=== PATIENT | male | born 1990 | race Hispanic/Latino ===

== ENCOUNTER 2025-08-22 15:01 | Emergency (ER) | payer SELFPAY ==
[2025-08-22 15:04] VITALS: BP 135/85; PULSE 77; RESP 20; TEMP 36.1; O2SAT 100
--- NOTE | 2025-08-22 15:22 | ED_ITS ---
HPI - Abdominal Pain General Chief Complaint: Abdominal Pain <Rebecca Knutson APRN - Last Filed: 08/22/25 20:00> Stated Complaint: abd pain <Rebecca Knutson APRN - Last Filed: 08/22/25 20:00> Time Seen by Provider: 08/22/25 15:07 <Rebecca Knutson APRN - Last Filed: 08/22/25 20:00> History of Present Illness HPI narrative: Patient is a 35-year-old male who presents to the ER with generalized abdominal pain. He reports his symptoms started approximately 3-4 days ago. He denies any urinary symptoms, recent fevers, constipation or diarrhea. Patient denies any medical history relevant to this ER visit. He reports his last bowel movement was this morning and was normal for him. <Rebecca Knutson APRN - Last Filed: 08/22/25 20:00> Related Data Allergies/Adverse Reactions: Allergies Allergy/AdvReac Type Severity Reaction Status Date / Time No Known Allergies Allergy Verified 08/22/25 15:06 <Rebecca Knutson APRN - Last Filed: 08/22/25 20:00> Review of Systems 2 Review of Systems: All systems reviewed & are unremarkable except as noted in HPI and below <Rebecca Knutson APRN - Last Filed: 08/22/25 20:00> Exam 2 Narrative: GENERAL: Well appearing, well-nourished, non-toxic, in no acute distress. HEAD: Normocephalic, atraumatic. NECK: Supple. No adenopathy, no masses. RESPIRATORY: Airway patent, respirations nonlabored. Clear to auscultation bilaterally, no rales, rhonchi, wheezing. CARDIOVASCULAR: Regular rate and rhythm without murmurs, rubs, or gallops. Peripheral pulses 2+ and equal bilaterally. ABDOMINAL: Soft, generalized tenderness, nondistended, no hepatosplenomegaly. Normoactive BS, + Raphael sign MUSCULOSKELETAL: Moves all extremities. Strength/ROM intact without gross deformities. SKIN: Warm, dry, normal color. No rashes. NEURO: A&O X3. Speech clear. Cranial nerves II-XII intact. No ataxic movements. PSYCHIATRIC: Appropriate mood and affect. Normal interaction. <Rebecca Knutson, [employer] - Last Filed: 08/22/25 20:00> Course Vital Signs Vital signs: Vital Signs Temperature 97.0 F L 08/22/25 15:04 Pulse Rate 77 08/22/25 15:04 Respiratory Rate 20 08/22/25 15:04 Blood Pressure 135/85 08/22/25 15:04 Pulse Oximetry 100 08/22/25 15:04 Oxygen Delivery Room Air 08/22/25 15:04 Temperature 98.6 F 08/22/25 21:32 Pulse Rate 66 08/22/25 21:32 Respiratory Rate 16 08/22/25 21:32 Blood Pressure 131/86 08/22/25 21:32 Pulse Oximetry 97 08/22/25 21:32 Oxygen Delivery Room Air 08/22/25 15:04 <Rebecca Knutson, [employer] - Last Filed: 08/22/25 20:00> Vital Signs Temperature 97.0 F L 08/22/25 15:04 Pulse Rate 77 08/22/25 15:04 Respiratory Rate 20 08/22/25 15:04 Blood Pressure 135/85 08/22/25 15:04 Pulse Oximetry 100 08/22/25 15:04 Oxygen Delivery Room Air 08/22/25 15:04 Temperature 98.6 F 08/22/25 21:32 Pulse Rate 66 08/22/25 21:32 Respiratory Rate 16 08/22/25 21:32 Blood Pressure 131/86 08/22/25 21:32 Pulse Oximetry 97 08/22/25 21:32 Oxygen Delivery Room Air 08/22/25 15:04 <Jennifer Keene PA-C - Last Filed: 08/22/25 22:00> MDM - Abdominal Pain MDM Narrative Medical decision making narrative: Patient is a 35-year-old male who presents to the ER with generalized abdominal pain. He reports his symptoms started approximately 3-4 days ago. He denies any urinary symptoms, recent fevers, constipation or diarrhea. Patient denies any medical history relevant to this ER visit. He reports his last bowel movement was this morning and was normal for him. Labs Ordered: CBC, CMP, UA, UDS, lipase Imaging Ordered: CT abdomen pelvis Medications Ordered: 1 L normal saline IV bolus, morphine 4 mg IV [id number]-Patient signed out to Jennifer Keene PA-C, pending CT scan results. <Rebecca Ivey Zenia, [employer] - Last Filed: 08/22/25 20:00> Differential Diagnosis Differential diagnosis: Likely abdominal pain <Rebecca Ivey Zenia [employer] - Last Filed: 08/22/25 20:00> Lab Data Attestation: I reviewed the patient's lab results. <Rebecca Ivey Zenia [employer] - Last Filed: 08/22/25 20:00> Result diagrams: 08/22/25 15:32 08/22/25 15:32 <Rebecca Ivey Zenia, [employer] - Last Filed: 08/22/25 20:00> Labs: Lab Results 08/22/25 08/22/25 08/22/25 Range/Units 15:31 15:32 15:33 WBC 10.0 (4.5-10.0) K/mm3 RBC 4.91 (4.6-6.20) M/mm3 Hgb 14.9 (14.0-18.0) g/dL Hct 43.3 (42.0-52.0) % MCV 88.2 (80-100) fl MCH 30.3 (26-34) pg MCHC 34.4 (32-36) g/dl RDW 13.1 (11.5-14.5) % Plt Count 253 (150-375) k/mm3 MPV 9.9 (7.4-10.4) fl Immature Gran % (Auto) 0.3 (0-0.5) % Neut % (Auto) 58.6 (45.5-73.1) % Lymph % (Auto) 29.0 (18.3-44.2) % [place] % (Auto) 9.1 H (2.6-8.5) % Eos % (Auto) 2.5 (0-4.4) % Baso % (Auto) 0.5 (0.2-1.2) % Lymph # (Auto) 2.90 (0.9-3.2) K/mm3 [place] # (Auto) 0.9 H (0.1-0.6) K/mm3 Eos # (Auto) 0.3 (0-0.3) K/mm3 Baso # (Auto) 0.1 (0.0-0.1) K/mm3 Abs Immat Gran (auto) 0.03 (0.00-0.031) K/mm3 Absolute Neuts (auto) 5.9 (1.3-6.7) K/mm3 Absolute Nucleated RBC 0.000 (0.0-0.012) K/mm3 Nucleated RBC % 0.0 (0.0-0.2) % Sodium 136 L (137-145) mmol/L Potassium 3.8 (3.4-5.0) mmol/L Chloride 103 (98-107) mmol/L Carbon Dioxide 26 (22-30) mmol/L Anion Gap 7 (4-12) mmol/L BUN 12 (9-20) mg/dL Creatinine 0.85 (0.7-1.3) mg/dL Estim Creat Clear Calc 101 ml/min Estimated GFR > 60 (59 - ) Glucose 105 (65-110) mg/dL Calcium 9.8 (8.4-10.2) mg/dL Total Bilirubin 1.1 (0.2-1.3) mg/dL AST 41 (17-59) U/L ALT 81 H (6-50) U/L Alkaline Phosphatase 86 (38-126) U/L Total Protein 8.5 H (6.3-8.2) g/dL Albumin 4.8 (3.5-5.1) g/dL Lipase 54 (23-300) U/L Urine Color Yellow (Yellow) Urine Appearance Clear (Clear) Urine pH 6.0 (5.0-9.0) Ur Specific [place] 1.024 (1.001-1.035) Urine Protein Negative (Negative) mg/dL Urine Glucose (UA) Negative (Negative) mg/dL Urine Ketones Trace H (Negative) mg/dL Ur Blood (Man) Negative (Negative) Urine Nitrate Negative (Negative) Urine Bilirubin Negative (Negative) Urine Urobilinogen 1.0 (<2.0) mg/dL Leukocyte Esterase Rfl Negative (Negative) NATASHA/UL Urine Opiates Screen Negative (Negative) Urine Methadone Screen Negative (Negative) Ur Barbiturates Screen Negative (Negative) Ur Phencyclidine Scrn Negative (Negative) Ur Amphetamine Screen Negative (Negative) U Benzodiazepines Scrn Negative (Negative) Urine Cocaine Screen Negative (Negative) U Cannabinoids Screen Negative (Negative) <Rebecca L. Zenia, [employer] - Last Filed: 08/22/25 20:00> Lab Results 08/22/25 08/22/25 08/22/25 Range/Units 15:31 15:32 15:33 WBC 10.0 (4.5-10.0) K/mm3 RBC 4.91 (4.6-6.20) M/mm3 Hgb 14.9 (14.0-18.0) g/dL Hct 43.3 (42.0-52.0) % MCV 88.2 (80-100) fl MCH 30.3 (26-34) pg MCHC 34.4 (32-36) g/dl RDW 13.1 (11.5-14.5) % Plt Count 253 (150-375) k/mm3 MPV 9.9 (7.4-10.4) fl Immature Gran % (Auto) 0.3 (0-0.5) % Neut % (Auto) 58.6 (45.5-73.1) % Lymph % (Auto) 29.0 (18.3-44.2) % [place] % (Auto) 9.1 H (2.6-8.5) % Eos % (Auto) 2.5 (0-4.4) % Baso % (Auto) 0.5 (0.2-1.2) % Lymph # (Auto) 2.90 (0.9-3.2) K/mm3 [place] # (Auto) 0.9 H (0.1-0.6) K/mm3 Eos # (Auto) 0.3 (0-0.3) K/mm3 Baso # (Auto) 0.1 (0.0-0.1) K/mm3 Abs Immat Gran (auto) 0.03 (0.00-0.031) K/mm3 Absolute Neuts (auto) 5.9 (1.3-6.7) K/mm3 Absolute Nucleated RBC 0.000 (0.0-0.012) K/mm3 Nucleated RBC % 0.0 (0.0-0.2) % Sodium 136 L (137-145) mmol/L Potassium 3.8 (3.4-5.0) mmol/L Chloride 103 (98-107) mmol/L Carbon Dioxide 26 (22-30) mmol/L Anion Gap 7 (4-12) mmol/L BUN 12 (9-20) mg/dL Creatinine 0.85 (0.7-1.3) mg/dL Estim Creat Clear Calc 101 ml/min Estimated GFR > 60 (59 - ) Glucose 105 (65-110) mg/dL Calcium 9.8 (8.4-10.2) mg/dL Total Bilirubin 1.1 (0.2-1.3) mg/dL AST 41 (17-59) U/L ALT 81 H (6-50) U/L Alkaline Phosphatase 86 (38-126) U/L Total Protein 8.5 H (6.3-8.2) g/dL Albumin 4.8 (3.5-5.1) g/dL Lipase 54 (23-300) U/L Urine Color Yellow (Yellow) Urine Appearance Clear (Clear) Urine pH 6.0 (5.0-9.0) Ur Specific [place] 1.024 (1.001-1.035) Urine Protein Negative (Negative) mg/dL Urine Glucose (UA) Negative (Negative) mg/dL Urine Ketones Trace H (Negative) mg/dL Ur Blood (Man) Negative (Negative) Urine Nitrate Negative (Negative) Urine Bilirubin Negative (Negative) Urine Urobilinogen 1.0 (<2.0) mg/dL Leukocyte Esterase Rfl Negative (Negative) NATASHA/UL Urine Opiates Screen Negative (Negative) Urine Methadone Screen Negative (Negative) Ur Barbiturates Screen Negative (Negative) Ur Phencyclidine Scrn Negative (Negative) Ur Amphetamine Screen Negative (Negative) U Benzodiazepines Scrn Negative (Negative) Urine Cocaine Screen Negative (Negative) U Cannabinoids Screen Negative (Negative) <Jennifer Keene PA-C - Last Filed: 08/22/25 22:00> Imaging Data Radiologist's impression: CT abdomen pelvis: Inflammatory changes associated with short segment of the right colon at the hepatic flexure. No abscess or free air. <Jennifer Keene PA-C - Last Filed: 08/22/25 22:00> Critical Care Time Critical Care Time Critical Care Time: No <Jennifer Keene PA-C - Last Filed: 08/22/25 22:00> Discharge Plan Discharge Clinical Impression: Diverticulitis <Rebecca Knutson APRN - Last Filed: 08/22/25 20:00> Patient Disposition: Home <Rebecca Knutson APRN - Last Filed: 08/22/25 20:00> Condition: Stable <Rebecca Knutson APRN - Last Filed: 08/22/25 20:00> Instructions: Antibiotic Form, Diverticulitis (ED), Diverticulitis Diet (ED) <Rebecca Knutson APRN - Last Filed: 08/22/25 20:00> Additional Instructions: Return to the ER if you experience fever, abdominal pain with nausea and vomiting, you are unable to keep down liquids or solids, blood in the stool, pain or burning with urination, blood in the urine or any other symptoms that are concerning to you Remain well hydrated. Clear liquid diet over the next day or 2 until your pain is improving. Take oral antibiotics as prescribed Follow up with primary care doctor <Rebecca Knutson APRN - Last Filed: 08/22/25 20:00> Patient Language: Belarusian <Rebecca Knutson APRN - Last Filed: 08/22/25 20:00> Prescriptions: New amoxicillin-pot clavulanate 875-125 mg tablet 1 tablet PO Q12H 10 Days Qty: 20 0RF <Rebecca Knutson APRN - Last Filed: 08/22/25 20:00> Follow-up/Referrals: PHYSICIAN,BRILLIANDEER LOOPER [Primary Care Provider, Internal Medicine] Geovany Buckner MD [Physician, Family Practice] <eRbecca Knutson APRN - Last Filed: 08/22/25 20:00>
[2025-08-22] MEDS: SODIUM CHLORIDE 0.9% IV 1,000 ML 999 ML IV CONT (15:29)
[2025-08-22] MEDS: MORPHINE SULFATE (*CRX) 4 MG/ML INJ IV PUSH (15:37)
[2025-08-22 15:39] LABS: Hematocrit 43.3 % (42.0-52.0); Hemoglobin 14.9 g/dL (14.0-18.0); Immature Granulocyte Percent A 0.3 % (0-0.5); Lymphocytes Absolute Auto 2.90 K/mm3 (0.9-3.2); Mean Corpuscular HGB Conc 34.4 g/dl (32-36); Mean Corpuscular Hemoglobin 30.3 pg (26-34); Mean Corpuscular Volume 88.2 fl (80-100); Nucleated Red Blood Cells Absolute Auto 0.000 K/mm3 (0.0-0.012); Nucleated Red Blood Cells Perc 0.0 % (0.0-0.2); Platelet Count Result 253 k/mm3 (150-375); Red Blood Count 4.91 M/mm3 (4.6-6.20); White Blood Count 10.0 K/mm3 (4.5-10.0)
[2025-08-22 15:42] LABS: Add Urine Microscopic? NO; Appearance Urine Clear (Clear); Glucose Urine UA Negative (Negative); Leukocyte Esterase Ur Negative LEU/UL (Negative); Nitrate Urine Negative (Negative); Specific Grav Ur 1.024 (1.001-1.035)
[2025-08-22 15:51] LABS: Alanine Aminotransferase 81 U/L (6-50); Albumin Level 4.8 g/dL (3.5-5.1); Alkaline Phosphatase 86 U/L (38-126); Anion Gap 7 mmol/L (4-12); Aspartate Amino Transferase 41 U/L (17-59); Bilirubin,Total 1.1 mg/dL (0.2-1.3); Blood Urea Nitrogen 12 mg/dL (9-20); Calcium 9.8 mg/dL (8.4-10.2); Carbon Dioxide 26 mmol/L (22-30); Chloride 103 mmol/L (98-107); Estimated CRCL calculation 101 ml/min; Estimated Glomerular Filt Rate > 60; Glucose 105 mg/dL (65-110); Lipase 54 U/L (23-300); Potassium 3.8 mmol/L (3.4-5.0); Sodium 136 mmol/L (137-145); Total Protein 8.5 g/dL (6.3-8.2)
[2025-08-22 16:00] LABS: Cannabinoid Screen Urine Negative (Negative)
[2025-08-22 17:00] VITALS: BP 128/81; PULSE 74; RESP 18; O2SAT 100
[2025-08-22 21:32] VITALS: BP 131/86; PULSE 66; RESP 16; TEMP 37; O2SAT 97
== END 2025-08-22 22:09 | disposition home or self-care (01) ==
PROVIDERS: Emergency Provider Registered Nurse
DX: K57.92 Diverticulitis of intestine, part unspecified, without perforation or abscess without bleeding (principal)
CPT/HCPCS: 36415; 74177; 80053; 80307; 81003; 83690; 85025; 96361; 96374; 99284; J2270; J7030; Q9967